=== PATIENT | female | born 1985 | race Caucasian/White ===

== ENCOUNTER → 2017-01-14 | Outpatient (CLI) | payer OTHER | LOC: FIMAGING 15:16 | PROVIDERS: ATTEND Family Medicine | DX: S82.832A Other fracture of upper and lower end of left fibula, initial encounter for closed fracture (principal); Y93.23 Activity, snow (alpine) (downhill) skiing, snowboarding, sledding, tobogganing and snow tubing ==

== ENCOUNTER 2017-04-29 23:01 | Emergency (ER) | payer OTHER ==
[2017-04-29 23:09] VITALS: RESP 16
--- NOTE | 2017-04-30 00:34 | EDPHY ---
H & P Stated Complaint: ETOH WHILE AT THE [facility]. VOMITING ON [facility] HOLD Time Seen by Provider: 04/29/17 23:42 HPI/ROS: Chief Complaint: Alcohol intoxication, vomiting HPI: 32-year-old female who was found at the [facility] intoxicated. Patient passed out after vomiting. Is unable to ambulate on their own. Patient brought in by EMS for further evaluation. No obvious signs of trauma per EMS. Remainder of history is unobtainable secondary to the patient's intoxication. ROS: Unobtainable secondary to the patient's intoxication PMH: Unknown Medications: Unknown Allergies: Unknown Social History: Positive for alcohol Family History: non-contributory Physical Exam: Gen: Somnolent, responds to painful stimuli, maintaining airway, smells of alcohol and emesis HEENT: Atraumatic Nose: no epistaxis or deformity Eyes: PERRLA, EOMI Mouth: Moist mucosa Neck: Supple, no step-offs or deformity Chest: Atraumatic, lungs clear to auscultation Heart: S1, S2 normal, no murmur Abd: Soft, non-tender, no guarding Back: Atraumatic Ext: no edema, atraumatic Skin: no rash Neuro: Sensation grossly intact, Strength 5/5 in bilateral upper and lower extremities - Personal History Current Tetanus/Diphtheria Vaccine: Yes Current Tetanus Diphtheria and Acellular Pertussis (TDAP): Yes - Medical/Surgical History Hx Asthma: No Hx Chronic Respiratory Disease: No Hx Diabetes: No Hx Cardiac Disease: No Hx Renal Disease: No Hx Cirrhosis: No Hx Alcoholism: No Hx HIV/AIDS: No Hx Splenectomy or Spleen Trauma: No Other PMH: DENIES - Social History Smoking Status: Never smoked Constitutional: Initial Vital Signs Temperature (C) 37.2 C 04/29/17 23:05 Heart Rate 84 04/29/17 23:05 Respiratory Rate 16 04/29/17 23:05 Blood Pressure 108/77 04/29/17 23:05 O2 Sat (%) 93 04/29/17 23:05 O2 Delivery Mode Room Air Allergies/Adverse Reactions: No Known Allergies Allergy (Unverified 04/29/17 23:09) Home Medications: Medication Instructions Recorded NK [No Known Home Meds] 04/29/17 Medical Decision Making ED Course/Re-evaluation: Patient is now awake and appropriate. Ambulating unassisted to the bathroom. No current complaints. Medically cleared for the [facility]C Departure - Departure Disposition: Home, Routine, Self-Care Clinical Impression: Alcoholic intoxication Condition: Good Instructions: Alcohol Intoxication (ED) Additional Instructions: Please try to avoid binge drinking alcohol. Referrals: Patient,NotPresent [Primary Care Provider] - As per Instructions
[2017-04-30 00:37] VITALS: BP 101/63; PULSE 82; TEMP 98.1; O2SAT 97
== END 2017-04-30 00:54 | disposition home or self-care (01) ==
LOC: EDUNIT#
DX: F10.129 Alcohol abuse with intoxication, unspecified (principal)